=== PATIENT | female | born 1960 | race Caucasian/White ===

== ENCOUNTER → 2024-02-08 10:06 | Outpatient (REF) | payer MEDICARE, OTHER, SELFPAY | LOC: RAD 10:06 | PROVIDERS: ATTENDING PHYSICIAN Surgery; FAMILY PHYSICIAN Physician Assistant Medical | DX: K21.9 Gastro-esophageal reflux disease without esophagitis (principal); K44.9 Diaphragmatic hernia without obstruction or gangrene | CPT/HCPCS: 74246 ==

== ENCOUNTER → 2024-03-17 06:36 | Outpatient (REF) | payer MEDICARE, OTHER, SELFPAY ==
[2024-03-17 08:49] LABS: Hematocrit 38.9 % (37.0-47.0); Mean Corp Hgb Conc. 33.4 g/dL (33.0-37.0); Mean Corpuscular Volume 89.6 fL (81.0-99.0); Platelet Count 291 10^3/uL (130-400); Red Blood Cell Count 4.34 10^6/uL (4.20-5.40); Red Cell Dist. Width 14.5 % (11.5-14.5); White Blood Cell Count 5.1 10^3/uL (4.8-10.8)
[2024-03-17 09:17] LABS: Blood Urea Nitrogen 16 mg/dl (7-17); Calcium 9.1 mg/dl (8.4-10.2); Carbon Dioxide 27 mmol/L (22-30); Chloride 100 mmol/L (98-107); Glucose 92 mg/dl (70-99); Potassium 4.3 mmol/L (3.5-5.1); Sodium 136 mmol/L (135-145); eGFR > 60.00
== END ==
LOC: SDSPAT 06:36
PROVIDERS: ATTENDING PHYSICIAN Surgery; FAMILY PHYSICIAN Physician Assistant Medical
DX: Z01.818 Encounter for other preprocedural examination (principal)
CPT/HCPCS: 36415; 80048; 85027; 86850; 86900; 86901; 93005

== ENCOUNTER 2024-03-28 06:29 | Day surgery (SDC) | payer MEDICARE, OTHER, SELFPAY ==
[2024-03-17 10:13] VITALS: BMI 29.8
[2024-03-28] VITALS (13 sets, daily range): BP systolic 0–144; BP diastolic 76–97; BMI 29.8
--- NOTE | 2024-03-28 10:22 | HP.FOC2 ---
Focused History & Physical
Chief Complaint
HPI:
Chief Complaint: GERD/dysphagia
HPI / Indication for Planned Procedure: Patient is a 63-year-old female recently referred in outpatient surgical evaluation secondary to a progressively symptomatic type III paraesophageal hernia. After discussions with patient regarding treatment
options she presents today for scheduled operative correction of her type III paraesophageal hernia. Please see office visit notes for full details regarding her prior discussions regarding the operative procedure and management options/workup.
Relevant Past Medical History: Other (IBS-C, thyroid nodule, candidal esophagitis, history of H. pylori gastritis, paraesophageal hernia)
Relevant Social History: Negative
Relevant Family History: Negative
Relevant Past Surgical History: Positive for (Appendectomy, LEEP, TVT, bunionectomy, jaw surgery, hemorrhoid banding)
Review of Systems
Review of Pertinent Systems: All Systems Negative
Medication
See Medication form for detailed medications: Yes
Medication List (including Herbals & OTC):
Magnesium Blend 1 tab PO HS 03/18/24
Magnesium Sleep Aid 1 cap PO HS 03/18/24
Nutrafol 4 cap PO DAILY 03/18/24
Poop Doc 1 tab PO HS 03/18/24
calcium carbonate 500 mg PO TID PRN indigestion 03/18/24
wgi-wdozqbscy-IR-acetaminophen 2 mg-30 mg-15 mg-325 mg tablet 2 tab PO PRN PRN congestion 03/18/24
famotidine 20 mg tablet (Pepcid AC) 20 mg PO DAILY PRN GERD 03/18/24
omeprazole 20 mg tablet,delayed release 20 mg PO DAILY PRN GERD 03/18/24
Medications Reviewed: Yes
Allergies and Reactions
Patient has Allergies: Yes
Noted Allergies and Reactions:
Allergy/AdvReac Type Severity Reaction Status Date / Time
pollen extracts Allergy seasonal Verified 03/28/24 10:15
allergies
Pertinent Physical Exam
All Other Systems: Negative
Head/Neck: Normal
Lungs: Normal
Heart: Normal
Abdomen: Normal
Extremities: Normal
Neurological: Normal
Diagnosis / Assessment
63-year-old female with a symptomatic type III paraesophageal hernia presenting for scheduled operative correction
Plan / Procedure
Robotic assisted laparoscopic repair paraesophageal hernia with fundoplication and intraoperative EGD
Anesthesia/Sedation to be done by Anesthesia Provider: Yes
[2024-03-28] MEDS: TYLENOL 1000 MG PO (10:30)
--- NOTE | 2024-03-28 12:58 | W.SUR.PREOP ---
Pre-Operative Surgical Note
-
I have examined this patient prior to the performance of the scheduled procedure.
The patient's condition is unchanged from the time of the current History and
Physical and the patient is able to undergo the scheduled procedure.
--- NOTE | 2024-03-28 17:15 | W.IMMPOSTOP ---
Addendum entered and electronically signed by Sony Soriano MD 03/31/24 13:01:
#[id number]
Original Note:
Surgical Immed Post Op Note
-
Primary Surgeon: Bo
Assisting Surgeon: April Brown PA-C
Pre-op Diagnosis: Symptomatic type III paraesophageal hernia
Post-op Diagnosis: Symptomatic type III paraesophageal hernia
Procedure Performed: Robotic assisted laparoscopic repair of paraesophageal hernia with Toupet fundoplication; EGD
Anesthesia Type: GETA +0.25% Marcaine with epi
Specimen / Cultures: None
Estimated Blood Loss: 14 mL
Complications: None immediate
Operative Findings: Type III paraesophageal hernia containing the proximal 30 to 40% of stomach within the hiatal hernia space. Entire hernia sac and contents reduced. Circumferential mobilization of the esophagus well into the mediastinum to
allow for intra-abdominal esophageal length of 3 to 4 cm without tension. Posterior crural closure with combination of horizontal mattress 0 silk pledgeted stitch x2 and simple interrupted 0 silk stitch x 4. Crural closure accommodated 54 [place]
bougie with additional appropriate bit of laxity. Posterior fundoplication performed with 54 [place] bougie in place. Posterior gastropexy of fundoplication to saul with 2 simple interrupted 0 silk stitches. Right sided capnothorax from right
parietal pleural opening.
Drains: 19 Miguel at the left lateral 8 mm trocar site positioned into the posterior mediastinum to assist with evacuation of any residual capnothorax/mediastinal insufflation/fluid.
Patient's updated postoperatively in the waiting area.
[2024-03-28] MEDS: ZOFRAN 4 MG IV (22:09)
[2024-03-28] MEDS: LR 1000 IV (22:26)
[2024-03-28] MEDS: MYLICON 80 MG PO (22:46)
[2024-03-29] MEDS: ZOFRAN 4 MG IV ×2 (01:11→07:57)
[2024-03-29] MEDS: TORADOL 10 MG IV ×2 (01:16→16:44)
--- NOTE | 2024-03-29 02:07 | PTCARENOTE ---
Pt arrived via PACU at 1900. Pt AAOX3. VSS. 2LO2 at 96%. IVF infusing 120 ml/hr. Baker draining yellow urine. 5 lap sites OA with glue. L CANDACE drain with no output. no complaints of pain. head to toe assessment complete. bed locked and in lowest
position. call randhawa within reach. care ongoing.
[2024-03-29 03:21] VITALS: BP 134/74
[2024-03-29] MEDS: TYLENOL 650 MG PO ×2 (05:54→21:04)
[2024-03-29] MEDS: COMPAZINE 5 MG IV (06:39)
[2024-03-29 07:04] LABS: Hematocrit 40.6 % (37.0-47.0); Hemoglobin 13.4 g/dL (12.0-16.0); Mean Platelet Volume 9.7 fL (7.4-10.4); Platelet Count 322 10^3/uL (130-400); Red Blood Cell Count 4.46 10^6/uL (4.20-5.40); Red Cell Dist. Width 14.2 % (11.5-14.5); White Blood Cell Count 12.1 10^3/uL (4.8-10.8)
[2024-03-29 07:10] VITALS: BP 132/80
[2024-03-29] MEDS: MYLICON 80 MG PO ×2 (07:17→07:57)
[2024-03-29] MEDS: LR 1000 IV ×3 (07:18→21:01)
[2024-03-29 07:26] LABS: Blood Urea Nitrogen 15 mg/dl (7-17); Carbon Dioxide 24 mmol/L (22-30); Chloride 104 mmol/L (98-107); Estimated Creatinine Clearance 70 ml/min; Glucose 104 mg/dl (70-99); Potassium 4.6 mmol/L (3.5-5.1); Sodium 139 mmol/L (135-145); eGFR > 60.00
[2024-03-29] MEDS: NSS (PRESERVATIVE FREE) 10 ML IV (07:57)
[2024-03-29] MEDS: PROTONIX IV 40 MG IV (07:57)
[2024-03-29 11:07] VITALS: BP 122/75
--- NOTE | 2024-03-29 12:07 | W.PN.GS2 ---
Addendum entered and electronically signed by Matthew Paz MD 03/29/24 12:18:
I saw and examined the patient.
The Manager Ui's note was reviewed and I agree with the note.
Comment: C/o nausea overnight, slightly improved with meds. Pain controlled. Will keep NPO with sips/chips until nausea improves.
Original Note:
Today's Communication / Plan
-
NPO with antiemetics
Assessment / Plan
-
63 yo female with symptomatic type III paraesophageal hernia now POD #1 RAL repair of paraesophageal hernia with Toupet fundoplication
AFVSS
Nausea post operatively but no vomiting
Labs stable
--NPO with sips/ice chips until nausea resolved
--analgesics prn
--antiemetics scheduled and prn
--IVF while NPO
--Increase activity/oob ambulate
--IS while awake
--c/w CANDACE, will remove prior to discharge
Subjective Data
-
Date of Service: March 29, 2024
Patient seen and examined at bedside with Dr. Paz. Nausea overnight without vomiting. Some incisional soreness but pain well controlled.
Objective Data
-
Intake and Output
03/28/24 03/29/24 03/30/24
06:59 06:59 06:59
Intake Total 1580 / 1580
Output Total 750 / 750
Balance 830 / 830
Intake:
Oral fluids 360 / 360
IV fluids (Total) 1220 / 1220
Normosal 200 / 200
Output:
Drain Output (Total) 0 / 0
Left Lower Abdomen Braulio- 0 / 0
Morse
Urine, Baker 750 / 750
Vital Signs
Temp Pulse Resp BP Pulse Ox
98.5 F 73 16 122/75 96
03/29/24 11:07 03/29/24 11:07 03/29/24 11:07 03/29/24 11:07 03/29/24 11:07
Lab Results
03/29/24 06:27
03/29/24 06:27
Calcium 9.0 mg/dl (8.4-10.2) 03/29/24 06:27
Physical Exam
-
NAD
ABD soft, nd, some mild incisional tenderness
Incisions well approximated with intact glue, CANDACE with some serous output in tubing: bulb empty
--- NOTE | 2024-03-29 14:24 | CM ---
Case management reviewed chart. Patient is s/p an EGD and paraesophageal hernia. She is sitting up in recliner at bedside. Multiple family members in room. She lives at home with her . Independent. No DME. Drives. 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 She denied any +SDOHs. Has an active PCP and pharmacy. will provide transportation, once she is discharged.
ANTICIPATED DISCHARGE PLAN: Home with , when medically stable.
[2024-03-29] MEDS: ZOFRAN IV ×2 (15:00→21:13)
[2024-03-29 15:20] VITALS: BP 118/70
[2024-03-29] MEDS: LOVENOX 40 MG SC (16:48)
[2024-03-29 23:45] VITALS: BP 111/71
[2024-03-30] MEDS: ZOFRAN IV (02:46)
[2024-03-30] MEDS: TYLENOL 650 MG PO (04:07)
[2024-03-30] MEDS: LR 1000 IV (06:37)
[2024-03-30 06:40] LABS: Hematocrit 36.4 % (37.0-47.0); Mean Corpuscular Hgb 29.6 pg (27.0-31.0); Mean Corpuscular Volume 89.9 fL (81.0-99.0); Mean Platelet Volume 9.4 fL (7.4-10.4); Platelet Count 260 10^3/uL (130-400); Red Blood Cell Count 4.05 10^6/uL (4.20-5.40); Red Cell Dist. Width 14.4 % (11.5-14.5); White Blood Cell Count 8.7 10^3/uL (4.8-10.8)
[2024-03-30 06:51] LABS: Blood Urea Nitrogen 12 mg/dl (7-17); Calcium 8.9 mg/dl (8.4-10.2); Carbon Dioxide 27 mmol/L (22-30); Chloride 106 mmol/L (98-107); Estimated Creatinine Clearance 70 ml/min; Glucose 85 mg/dl (70-99); Potassium 4.2 mmol/L (3.5-5.1); Sodium 139 mmol/L (135-145); eGFR > 60.00
[2024-03-30 07:25] VITALS: BP 134/79
[2024-03-30] MEDS: PROTONIX IV 40 MG IV (08:03)
[2024-03-30] MEDS: NSS (PRESERVATIVE FREE) 10 ML IV (08:03)
[2024-03-30] MEDS: ZOFRAN 4 MG IV ×2 (08:07→14:19)
[2024-03-30] MEDS: TORADOL 10 MG IV (11:12)
--- NOTE | 2024-03-30 11:24 | W.PN.GS2 ---
Addendum entered and electronically signed by Matthew Paz MD 03/30/24 11:31:
I saw and examined the patient.
The Web Knitter's note was reviewed and I agree with the note.
Comment: Much improved. Nausea has resolved. Pain controlled. Ambulating. Exam approp. Ready for diet advancement and DC home once yamile FLD. Will dc CANDACE prior to DC
Original Note:
Today's Communication / Plan
-
diet advancement
Assessment / Plan
-
63 yo female with symptomatic type III paraesophageal hernia now POD #2 RAL repair of paraesophageal hernia with Toupet fundoplication
AFVSS
Nausea post operatively which is now resolved
Labs stable
--Start on clears and advance to full liquids as tolerated
--analgesics prn
--antiemetics scheduled and prn
--d/c IVF
--Increase activity/oob ambulate
--IS while awake
--c/w CANDACE, will remove prior to discharge
Tentative d/c later today vs tomorrow pending diet tolerance
Subjective Data
-
Date of Service: March 30, 2024
Patient seen and examined at bedside with Dr. Paz. Denies further nausea. Epigastric discomfort responding well to toradol. Feeling better overall.
Objective Data
-
Intake and Output
03/29/24 03/30/24 03/31/24
06:59 06:59 06:59
Intake Total 1580 / 1580 1440 / 1440
Output Total 750 / 750 740 / 740
Balance 830 / 830 700 / 700
Intake:
Oral fluids 360 / 360 240 / 240
IV fluids (Total) 1220 / 1220 1200 / 1200
Normosal 200 / 200
Output:
Drain Output (Total) 0 / 0 40 / 40
Left Lower Abdomen Braulio- 0 / 0 40 / 40
Morse
Urine, Baker 750 / 750
Urine, Voided 700 / 700
Other:
Number of approximated MODERATE 4
amounts of urine
Vital Signs
Temp Pulse Resp BP Pulse Ox
97.7 F 65 18 134/79 97
03/30/24 07:25 03/30/24 07:25 03/30/24 07:25 03/30/24 07:25 03/30/24 07:25
Lab Results
03/30/24 06:10
03/30/24 06:10
Calcium 8.9 mg/dl (8.4-10.2) 03/30/24 06:10
Physical Exam
-
NAD
ABD soft, nd, some mild incisional tenderness
Incisions well approximated with intact glue, CANDACE with some light SSF outputs
--- NOTE | 2024-03-30 15:05 | CM ---
Pt for possible discharge today if able to tolerate full liquid diet
Reports has ride at discharge
Plan - home no needs
[2024-03-30 15:06] VITALS: BP 125/78
--- NOTE | 2024-03-30 15:10 | W.DS.TRANS ---
DC Summary - Fixture Builder
-
Discharge Instructions:
Discharge Diagnosis/Procedures Type III paraesophageal hernia. Robotic
assisted laparoscopic repair paraesophageal
hernia with toupee fundoplication
Diet Other diet
Additional Diets Full liquids/soft post fundoplication diet.
Smaller/more frequent meals spaced throughout
the day. Take care to chew solid foods.
Smaller bite sizes and allow ample time between
swallows to avoid stacking bites. Avoid
carbonated beverages. Avoid drinking through
straws.
Activity No strenuous activity
Additional Activity No lifting over 15 pounds postoperatively for 6
weeks
Driving Restrictions No driving for 3 to 4 days or if using narcotics
Bathing Restrictions OK to Shower
Wound Care Glue at surgical sites typically peels off in 2
to 3 weeks. Cover the site where your drain was
with a clean gauze dressing and change daily and
as needed until drainage is no longer present.
Instructions:
Stand-Alone Forms:
Changes to Home Medications: No
Discharge Medications:
DC Medications w/original date entered in [email or web address]
Magnesium Blend 1 tab PO HS 03/18/24
Magnesium Sleep Aid 1 cap PO HS 03/18/24
Nutrafol 4 cap PO DAILY 03/18/24
Poop Doc 1 tab PO HS 03/18/24
famotidine 20 mg tablet (Pepcid AC) 20 mg PO DAILY PRN GERD 03/18/24
omeprazole 20 mg tablet,delayed release 20 mg PO DAILY PRN GERD 03/18/24
acetaminophen 325 mg tablet 650 mg (2 x 325 mg) PO Q4HPRN PRN mild pain #1 tab 03/30/24
ibuprofen 200 mg tablet 400 - 600 mg (2 - 3 x 200 mg) PO Q6HPRN PRN moderate pain #1 tab 03/30/24
ondansetron 4 mg disintegrating tablet 4 mg PO Q8HPRN PRN nausea/vomiting #15 tabs 03/30/24
tramadol 50 mg tablet 25 - 50 mg (0.5 - 1 x 50 mg) PO Q6HPRN PRN severe pain/breakthrough pain #10 tabs 03/30/24
Home Medication Changes
Pending Results: No
== END 2024-03-30 17:34 | disposition home or self-care (01) ==
LOC: SDS 06:29
PROVIDERS: Registered Nurse; ATTENDING PHYSICIAN Surgery
DX: K44.9 Diaphragmatic hernia without obstruction or gangrene (principal)
CPT/HCPCS: 43281; 80048; 85027

== ENCOUNTER → 2024-08-15 07:12 | Outpatient (REF) | payer MEDICARE, OTHER, SELFPAY | LOC: HWRAD 07:12 | PROVIDERS: ATTENDING PHYSICIAN Internal Medicine Endocrinology, Diabetes & Metabolism; FAMILY PHYSICIAN Physician Assistant Medical | DX: E04.2 Nontoxic multinodular goiter (principal) | CPT/HCPCS: 76536 ==

== ENCOUNTER → 2024-11-13 13:01 | Outpatient (REF) | payer MEDICARE, OTHER, SELFPAY | LOC: HWRAD 13:01 | PROVIDERS: ATTENDING PHYSICIAN Registered Nurse Women's Health Care, Ambulatory; FAMILY PHYSICIAN Physician Assistant Medical | DX: D25.9 Leiomyoma of uterus, unspecified (principal) | CPT/HCPCS: 76830; 76856 ==

== ENCOUNTER → 2024-12-30 13:13 | Outpatient (REF) | payer MEDICARE, OTHER, SELFPAY | LOC: HWWDC 13:13 | PROVIDERS: ATTENDING PHYSICIAN Obstetrics & Gynecology Gynecology; FAMILY PHYSICIAN Physician Assistant Medical | DX: Z12.31 Encounter for screening mammogram for malignant neoplasm of breast (principal); Z78.0 Asymptomatic menopausal state | CPT/HCPCS: 77063; 77067; 77080 ==

== ENCOUNTER → 2025-02-24 12:38 | Outpatient (REF) | payer MEDICARE, OTHER, SELFPAY | LOC: HWRAD 12:38 | PROVIDERS: ATTENDING PHYSICIAN Registered Nurse Women's Health Care, Ambulatory; FAMILY PHYSICIAN Physician Assistant Medical | DX: D25.9 Leiomyoma of uterus, unspecified (principal) | CPT/HCPCS: 76830; 76856 ==